=== PATIENT | female | born 1965 | race African-American/Black ===

== ENCOUNTER 2016-08-30 10:13 | Emergency (ER) | payer MEDICAID ==
[~2016-08-30] VITALS: Ht 170.2 cm; Wt 132.0 kg
[~2016-08-30 10:13] MED LIST: ESTR5VIA4; PROV10
[2016-08-30] MEDS ORDERED: ONDANSETRON 4MG ODT PO ONE (12:00)
[2016-08-30] MEDS ORDERED: KETOROLAC 30MG/ML VIAL IM ONE (12:00)
[2016-08-30 12:21] LABS: HEMATOCRIT. 39.8 % (36.0-48.0); HEMOGLOBIN. 12.7 g/dL (12.0-16.0); MEAN CORPUSCULAR HEMOGLOBIN 23.5 pg (28.0-32.0); MEAN CORPUSCULAR HGB CONC 31.8 g/dL (31.0-37.0); MEAN CORPUSCULAR VOLUME 73.9 fL (81.0-99.0); RED BLOOD CELL COUNT 5.38 mill/uL (4.2-5.4); RED CELL DISTRIBUTION WIDTH 19.5 % (11.6-14.6); WHITE BLOOD COUNT 5.2 x1000/uL (4.5-11.0)
[2016-08-30 12:22] LABS: DIFFERENTIAL COMMENT 0; EOSINOPHILS % 6.4 % (0.0-5.0); LYMPHOCYTES % 21.1 % (20.0-50.0); MEAN PLATELET VOLUME 7.9 fl (7.4-10.4); MONOCYTES % 12.2 % (2.0-8.0); NEUTROPHILS % 59.3 % (40.0-76.0); PLATELET 252 x1000/uL (130-400)
[2016-08-30 12:25] LABS: CHLORIDE 107 mEq/L (98-107); INDEX HEMOLYSI 1 (1-3); INDEX ICTERIC 1 (1-4); INDEX LIPEMIC 1 (1-3)
[2016-08-30 12:33] LABS: ALANINE AMINOTRANSFERASE 18 IU/L (13-61); ALBUMIN 3.2 g/dL (3.4-5.0); ANION GAP 9; CALCIUM 8.9 mg/dL (8.5-10.1); CARBON DIOXIDE 29 mEq/L (21-32); UREA NITROGEN BLOOD 11 mg/dL (7-21); eGFR > 60 mL/min (>60)
[2016-08-30 12:38] LABS: GLUCOSE URINE NEGATIVE (NEGATIVE); KETONES URINE TRACE (NEGATIVE); LEUKOCYTE ESTERASE URINE 1+ (NEGATIVE); NITRITE URINE NEGATIVE (NEGATIVE); OCCULT BLOOD URINE 3+ (NEGATIVE); PROTEIN URINE 1+ (NEGATIVE); UROBILINOGEN URINE 0.2 E.U./dL (0.2-1.0)
[2016-08-30 12:39] LABS: CLARITY URINE TURBID (CLEAR); COLOR URINE BLOODY (YELLOW)
[2016-08-30 12:51] LABS: RBC URINE TNTC /hpf (0-2)
[2016-08-30 12:52] LABS: BACTERIA URINE TRACE; SQUAMOUS EPITHELIAL CELL URINE FEW /lpf (RARE/1+)
[2016-08-30] MEDS ORDERED: IBUPROFEN 800MG TABLET PO ONE (13:00)
[2016-08-30] MEDS ORDERED: MORPHINE SULFATE 2 MG/ML CPJ (NOT FOR IM USE) SQ ONE (13:30)
[2016-08-30 14:00] VITALS: BP 152/88
[2016-08-30] MEDS ORDERED: CEFTRIAXONE SODIUM 1 G/VIAL IM ONE (14:30)
[2016-08-30] MEDS ORDERED: LIDOCAINE HCL 1% 20ML VIAL (Pyxis) INJ MC ONE (15:30)
== END 2016-08-30 15:53 | disposition home or self-care (01) ==
LOC: ER 12:14
DX: N39.0 Urinary tract infection, site not specified (principal); Z79.899 Other long term (current) drug therapy; M19.90 Unspecified osteoarthritis, unspecified site; M06.9 Rheumatoid arthritis, unspecified
CPT/HCPCS: 36415; 76700; 76856; 80053; 81001; 81025; 85025; 96372; 99285; J0696; J1885; J2270; J3490; Q0162

== ENCOUNTER 2017-02-18 14:06 | Emergency (ER) | payer MEDICAID ==
[~2017-02-18] VITALS: Ht 172.7 cm; Wt 90.0 kg
[2017-02-18] MEDS ORDERED: ONDANSETRON HCL 4MG/2ML VIAL IV STA (14:31)
[2017-02-18] MEDS ORDERED: MORPHINE SULFATE 4 MG/ML CPJ (NOT FOR IM USE) IV STA (14:31)
[2017-02-18 14:54] LABS: BASOPHILS % 0.9 % (0.0-2.0); HEMATOCRIT. 29.5 % (36.0-48.0); HEMOGLOBIN. 8.8 g/dL (12.0-16.0); LYMPHOCYTES % 16.9 % (20.0-50.0); MEAN CORPUSCULAR HEMOGLOBIN 17.6 pg (28.0-32.0); MEAN CORPUSCULAR VOLUME 59.5 fL (81.0-99.0); MEAN PLATELET VOLUME 8.6 fl (7.4-10.4); MONOCYTES % 8.8 % (2.0-8.0); NEUTROPHILS % 70.4 % (40.0-76.0); PLATELET 321 x1000/uL (130-400); RED BLOOD CELL COUNT 4.96 mill/uL (4.2-5.4); RED CELL DISTRIBUTION WIDTH 22.1 % (11.6-14.6)
[2017-02-18 14:57] LABS: PROTHROMBIN TIME 10.8 sec (9.4-11.6)
[2017-02-18 15:03] LABS: HCG SCREEN NEGATIVE
[2017-02-18 15:05] LABS: CARBON DIOXIDE 27 mEq/L (21-32); CHLORIDE 107 mEq/L (98-107)
[2017-02-18] MEDS ORDERED: MORPHINE SULFATE 10 MG/ML CPJ IV NR (15:15)
[2017-02-18] MEDS ORDERED: MORPHINE SULFATE 2 MG/ML CPJ (NOT FOR IM USE) IV ONE (15:15)
[2017-02-18 15:16] LABS: CLARITY URINE CLEAR (CLEAR); COLOR URINE YELLOW (YELLOW); GLUCOSE URINE NEGATIVE (NEGATIVE); KETONES URINE 1+ (NEGATIVE); LEUKOCYTE ESTERASE URINE NEGATIVE (NEGATIVE); NITRITE URINE NEGATIVE (NEGATIVE); OCCULT BLOOD URINE 3+ (NEGATIVE); PROTEIN URINE 1+ (NEGATIVE); SPECIFIC GRAVITY URINE 1.027 (1.005-1.030)
[2017-02-18 15:40] LABS: PLATELET ESTIMATE NORMAL
[2017-02-18] MEDS ORDERED: KETOROLAC 30MG/ML VIAL IV ONE (20:00)
[2017-02-18 20:17] VITALS: BP 125/65
== END 2017-02-18 20:30 | disposition home or self-care (01) ==
LOC: ER 14:06
DX: R10.2 Pelvic and perineal pain (principal); R10.30 Lower abdominal pain, unspecified; N83.209 Unspecified ovarian cyst, unspecified side; D25.9 Leiomyoma of uterus, unspecified; K42.9 Umbilical hernia without obstruction or gangrene; E27.8 Other specified disorders of adrenal gland; D64.9 Anemia, unspecified; G89.29 Other chronic pain; E86.0 Dehydration
CPT/HCPCS: 36415; 74176; 76856; 80053; 81001; 83690; 84703; 85025; 85610; 87086; 96374; 96375; 99285; J1885; J2270; J2405